=== PATIENT | female | born 1965 | race Two or more races ===

== ENCOUNTER 2024-01-17 22:54 | Emergency (ER) | payer MEDICAID, OTHER ==
[~2024-01-17] VITALS: Ht 157.5 cm; Wt 72.6 kg
[2024-01-18] MEDS ORDERED: IBUPROFEN 400 MG TABLET ONE (00:13)
[2024-01-18] MEDS: IBUPROFEN 400 MG TABLET PO ONE (00:17)
[2024-01-18 01:12] VITALS: BP 138/80; TEMP 98; O2SAT 99
== END 2024-01-18 01:12 | disposition home or self-care (01) ==
LOC: EDUNIT# 22:54 → ER 23:06
DX: S93.492A Sprain of other ligament of left ankle, initial encounter (principal); S80.02XA Contusion of left knee, initial encounter; I10 Essential (primary) hypertension; E78.5 Hyperlipidemia, unspecified; E11.9 Type 2 diabetes mellitus without complications; W01.0XXA Fall on same level from slipping, tripping and stumbling without subsequent striking against object, initial encounter; Y93.89 Activity, other specified; Y92.89 Other specified places as the place of occurrence of the external cause; Y99.8 Other external cause status
CPT/HCPCS: 73564-TC; 73610-TC